=== PATIENT | female | born 1990 | race Caucasian/White ===

== ENCOUNTER 2016-08-03 10:28 | Emergency (ER) | payer OTHER ==
[2016-08-03 10:52] VITALS: RESP 18
[2016-08-03] MEDS ORDERED: diphenhydrAMINE ELIXIR 25 MG/10 ML CUP PO STA (11:09)
[2016-08-03] MEDS ORDERED: IPRATROPIUM-ALBUTEROL 3 ML NEB INHALATION STA (11:09)
[2016-08-03] MEDS ORDERED: IBUPROFEN 400 MG TAB PO STA (11:09)
--- NOTE | 2016-08-03 11:12 | ED ---
General Adult HPI - General Chief complaint: Allergic Reaction Stated complaint: lip swelling Time Seen by Provider: 08/03/16 10:54 Source: patient, RN notes reviewed Mode of arrival: ambulatory Limitations: no limitations - History of Present Illness Initial comments: 25-year-old female presents to the emergency room chief complaint of cough cold runny nose like symptoms. Patient states she's had these symptoms for the past few days. Patient states that yesterday she started noticing swelling to upper lip and a cold sore to the left. Patient states it continues to swell so she was concerned. Patient states that she also took, benefited first time yesterday and that seemed to help as well as Wells associate that with an ALLERGY or weakness from her cold. Patient states that she has had some gland irritation as well as some shortness of breath associated with her cold like symptoms. Patient is to help history and changes in medications. Patient denies any recent fever, chills, chest pain, back pain, abdominal pain, nausea vomiting, numbness or tingling, dysuria or hematuria, constipation or diarrhea, headaches or visual changes, or any other current symptoms. - Related Data Home Medications Medication Instructions Recorded Confirmed Ibuprofen [Motrin] 400 mg PO Q6HR PRN 10/12/15 10/12/15 Previous Rx's Medication Instructions Recorded Sulfamethox-Tmp 800-160Mg [Bactrim 1 tab PO Q12HR 7 Days 10/12/15 DS 800-160 mg] Docosanol 10% Cream [Abreva] 1 applic TOPICAL 5XD 5 Days 08/03/16 predniSONE 50 mg PO DAILY #5 tab 08/03/16 Allergies Allergy/AdvReac Type Severity Reaction Status Date / Time Iodinated Contrast Media - Allergy Rash/Hives Verified 08/03/16 10:52 Oral and [Iodinated Contrast Media - IV Dye] Review of Systems ROS Statement: Those systems with pertinent positive or pertinent negative responses have been documented in the HPI. ROS Other: All systems not noted in ROS Statement are negative. Past Medical History Past Medical History: Pneumonia, Pulmonary Embolus (PE) Additional Past Medical History / Comment(s): COLLAPSED LUNG meningitis History of Any Multi-Drug Resistant Organisms: None Reported Additional Past Surgical History / Comment(s): CHEST TUBE Past Psychological History: No Psychological Hx Reported Smoking Status: Current every day smoker Past Alcohol Use History: Occasional Past Drug Use History: Marijuana General Exam - General Exam Comments Initial Comments: General exam: Alert, active, comfortable in no apparent distress Head: Normocephalic Eyes: Normal reaction of pupils, equal size, normal range of extraocular motion Ears: normal external ear canals, pink tympanic membranes with normal cone of light Nose: clear with pink turbinates 1 patient does appear swollen upper lip with what appears to be an ulceration to the upper lip Throat: no erythema or exudates with normal sized tonsils Neck: no masses, no nuchal rigidity Chest: no chest wall deformity Lungs: equal air entry with no crackles or wheeze CVS: S1 and S2 normal with no audible mumurs, regular rhythm Abdomen: no hepatosplenomegaly, normal bowel sounds, no guarding or rigidity Spine: no scoliosis or deformity Skin: no rashes Neurological: No focal deficits, tone is normal in all 4 extremities Limitations: no limitations Course Vital Signs 08/03/16 08/03/16 08/03/16 10:47 11:21 11:29 Temperature 98.3 F Pulse Rate 95 84 84 Respiratory 18 Rate Blood Pressure 146/77 O2 Sat by Pulse 99 Oximetry Medical Decision Making - Medical Decision Making 25-year-old female presents for cold and upper lip sore. This time patient does appear to have acute bronchitis along with a cold sore outbreak. We'll start her on steroids for home as well as an inhaler. We discussed before did not smoking. We discussed return parameters and follow-up and all patient's questions. She states she understood and she is agreeable to plan. She'll be discharged home. - Lab Data Lab Results 08/03/16 Range/Units 11:20 Group A Strep Rapid Negative (Negative) - Radiology Data Radiology results: report reviewed, image reviewed Disposition Clinical Impression: Acute bronchitis, Cold sore Disposition: HOME SELF-CARE Condition: Stable Instructions: Acute Bronchitis (ED) Additional Instructions: Please use medication as discussed. Please follow up with family doctor if symptoms have not improved over the next two days. Please return to the emergency room if your symptoms increase or worsen or for any other concerns. Prescriptions: Docosanol 10% Cream [Abreva] 1 applic TOPICAL 5XD 5 Days predniSONE 50 mg PO DAILY #5 tab Referrals: Yordan Cazares MD [Primary Care Provider] - 1-2 days Time of Disposition: 12:07
--- NOTE | 2016-08-03 11:57 | XR ---
EXAMINATION TYPE: XR chest 2V DATE OF EXAM: 08/03/2016 11:36 AM COMPARISON: 11/17/2015 HISTORY: 25-year-old female with cough TECHNIQUE: PA and lateral views FINDINGS: The cardiomediastinal silhouette, aorta, and pulmonary vasculature are within normal limits. However, there is diffuse peribronchial cuffing and interstitial opacity. Findings increased from prior. No c onsolidation or pleural effusion. IMPRESSION: Correlate for bronchitis, uncontrolled asthma, or atypical pneumonias.
[2016-08-03 12:22] VITALS: BP 119/72; PULSE 76; TEMP 98.9
== END 2016-08-03 12:22 | disposition home or self-care (01) ==
LOC: EC 10:28
DX: J20.9 Acute bronchitis, unspecified (principal); F17.200 Nicotine dependence, unspecified, uncomplicated; Z91.041 Radiographic dye allergy status; Z87.01 Personal history of pneumonia (recurrent)
CPT/HCPCS: 71020; 87081; 87430; 94640; 99284

== ENCOUNTER 2016-10-10 12:33 | Emergency (ER) | payer OTHER ==
[2016-10-10 12:50] VITALS: BP 134/92; PULSE 92; RESP 18; TEMP 97.9
--- NOTE | 2016-10-10 13:05 | ED ---
General Adult HPI - General Chief complaint: Extremity Injury, Lower Stated complaint: Hip/Leg Pain Time Seen by Provider: 10/10/16 12:51 Source: patient, RN notes reviewed Mode of arrival: ambulatory Limitations: no limitations - History of Present Illness Initial comments: Patient 25-year-old female who presents emergency room today with chief complaint of pain to the left groin. Does admit that she was at work yesterday when she picked up a crate approximately 10 pounds and turned and twisted. Patient does admit that she felt some pain initially at that time. States it seems to get worse. She states that she tried some Tylenol yesterday with relief. States it is worse with certain movements when she lifts her leg up when she was trying to get into bed. Patient denies any other complaints or injuries. Patient denies any recent fever, chills, shortness of breath, chest pain, back pain, abdominal pain, nausea or vomiting, numbness or tingling, dysuria or hematuria, constipation or diarrhea, headaches or visual changes, or any other complaints. - Related Data Home Medications Medication Instructions Recorded Confirmed Ibuprofen [Motrin] 400 mg PO Q6HR PRN 10/12/15 10/12/15 Previous Rx's Medication Instructions Recorded Sulfamethox-Tmp 800-160Mg [Bactrim 1 tab PO Q12HR 7 Days 10/12/15 DS 800-160 mg] Docosanol 10% Cream [Abreva] 1 applic TOPICAL 5XD 5 Days 08/03/16 predniSONE 50 mg PO DAILY #5 tab 08/03/16 Ibuprofen [Motrin] 600 mg PO Q6HR PRN #40 day 10/10/16 Allergies Allergy/AdvReac Type Severity Reaction Status Date / Time Iodinated Contrast- Oral and Allergy Rash/Hives Verified 10/10/16 12:49 IV Dye [Iodinated Contrast Media - IV Dye] Review of Systems ROS Statement: Those systems with pertinent positive or pertinent negative responses have been documented in the HPI. ROS Other: All systems not noted in ROS Statement are negative. Past Medical History Past Medical History: Pneumonia, Pulmonary Embolus (PE) Additional Past Medical History / Comment(s): COLLAPSED LUNG meningitis History of Any Multi-Drug Resistant Organisms: None Reported Additional Past Surgical History / Comment(s): CHEST TUBE Past Psychological History: No Psychological Hx Reported Smoking Status: Current every day smoker Past Alcohol Use History: Occasional Past Drug Use History: Marijuana General Exam - General Exam Comments Initial Comments: General: The patient is awake and alert, in no distress, and does not appear acutely ill. Eye: Pupils are equal, round and reactive to light, extra-ocular movements are intact. No nystagmus. There is normal conjunctiva bilaterally. No signs of icterus. Ears, nose, mouth and throat: There are moist mucous membranes and no oral lesions. Neck: The neck is supple, there is no tenderness or JVD. Cardiovascular: There is a regular rate and rhythm. No murmur, rub or gallop is appreciated. Respiratory: Lungs are clear to auscultation, respirations are non-labored, breath sounds are equal. No wheezes, stridor, rales, or rhonchi. Gastrointestinal: Soft, non-distended, non-tender abdomen without masses or organomegaly noted. There is no rebound or guarding present. No CVA tenderness. Bowel sounds are unremarkable. Musculoskeletal: Normal ROM, no tenderness. Strength 5/5. Sensation intact. Pulses equal bilaterally 2+. Pain reproduced with flexion at the left hip. Neurological: A&O x 3. CN II-XII intact, There are no obvious motor or sensory deficits. Coordination appears grossly intact. Speech is normal. Skin: Skin is warm and dry and no rashes or lesions are noted. Psychiatric: Cooperative, appropriate mood & affect, normal judgment. Limitations: no limitations Course Vital Signs 10/10/16 12:46 Temperature 97.9 F Pulse Rate 92 Respiratory 18 Rate Blood Pressure 134/92 O2 Sat by Pulse 100 Oximetry Medical Decision Making - Medical Decision Making Patient seen here in the emergency room shows no signs of distress. Does not that the movement does cause pain. Patient has no sign of hernia. Was discussed with follow-up. Advised to use anti-inflammatories for pain Disposition Clinical Impression: Muscle strain Disposition: HOME SELF-CARE Condition: Good Instructions: Muscle Strain (ED) Additional Instructions: Please use ibuprofen for pain as prescribed. Please follow-up family doctor or return here to the emergency room symptoms increase or worsen or for any other concerns as discussed. Prescriptions: Ibuprofen [Motrin] 600 mg PO Q6HR PRN #40 day PRN Reason: Pain Referrals: Yordan Cazares MD [Primary Care Provider] - 1-2 days Time of Disposition: 13:04
--- NOTE | 2016-10-15 01:37 | CDI ---
Dear Jagdeep Ryder MD: Please do addendum to clinical impression that describes "Muscle strain", please include the location of the muscle strain. Thank you, Lana Echavarria, Safety Sitter. If you have any questions, please contact Home Improvement Contractor at [phone]. MIGUEL
== END 2016-10-10 13:33 | disposition home or self-care (01) ==
LOC: EC 12:33
DX: S39.011A Strain of muscle, fascia and tendon of abdomen, initial encounter (principal); F17.200 Nicotine dependence, unspecified, uncomplicated; Z91.041 Radiographic dye allergy status; X50.1XXA Overexertion from prolonged static or awkward postures, initial encounter; Y92.69 Other specified industrial and construction area as the place of occurrence of the external cause; Y93.89 Activity, other specified
CPT/HCPCS: 99282

== ENCOUNTER 2017-09-09 23:28 | Emergency (ER) | payer OTHER ==
[2017-09-09 23:35] VITALS: BP 140/84; PULSE 113; RESP 16; TEMP 98.4
[2017-09-10] MEDS ORDERED: CEPHALEXIN 500MG STARTER PACK 4 CAP BTL PO STA (00:07)
[2017-09-10] MEDS ORDERED: diphenhydrAMINE 50 MG/ML 1 ML VIAL IM STA (00:07)
[2017-09-10] MEDS ORDERED: CEPHALEXIN 500 MG CAP PO STA (00:07)
[2017-09-10] MEDS ORDERED: predniSONE 50 MG TAB PO STA (00:07)
--- NOTE | 2017-09-10 00:13 | ED ---
General Adult HPI - General Chief complaint: Skin/Abscess/Foreign Body Stated complaint: poss allergic reaction Time Seen by Provider: 09/10/17 00:00 Source: patient, RN notes reviewed Mode of arrival: ambulatory Limitations: no limitations - History of Present Illness Initial comments: This is a 26-year-old female who presents to the emergency room complaining of a bug bite on her lower right leg upper right leg and in her lower pelvis. Patient states she noticed them first last night and now the area is more red and itchy. Patient denies any difficulty breathing or shortness of breath. Patient doesn't know what they're and didn't remember feeling any bites. Patient denies any fever or chills. - Related Data Home Medications Medication Instructions Recorded Confirmed Ibuprofen [Motrin] 400 mg PO Q6HR PRN 10/12/15 09/09/17 Previous Rx's Medication Instructions Recorded Cephalexin [Keflex] 500 mg PO Q6HR #28 cap 09/10/17 predniSONE 40 mg PO DAILY #8 tab 09/10/17 Allergies Allergy/AdvReac Type Severity Reaction Status Date / Time Iodinated Contrast- Oral and Allergy Rash/Hives Verified 09/09/17 23:35 IV Dye [Iodinated Contrast Media - IV Dye] Review of Systems ROS Statement: Those systems with pertinent positive or pertinent negative responses have been documented in the HPI. ROS Other: All systems not noted in ROS Statement are negative. Past Medical History Past Medical History: Pneumonia, Pulmonary Embolus (PE) Additional Past Medical History / Comment(s): COLLAPSED LUNG meningitis History of Any Multi-Drug Resistant Organisms: None Reported Additional Past Surgical History / Comment(s): CHEST TUBE Past Psychological History: No Psychological Hx Reported Smoking Status: Current every day smoker Past Alcohol Use History: Occasional Past Drug Use History: Marijuana General Exam - General Exam Comments Initial Comments: GENERAL: Patient is well-developed and well-nourished. Patient is nontoxic and well- hydrated and is in mild distress. ENT: Neck is soft and supple. No significant lymphadenopathy is noted. Oropharynx is clear. Moist mucous membranes. Neck has full range of motion without eliciting any pain. EYES: The sclera were anicteric and conjunctiva were pink and moist. Extraocular movements were intact and pupils were equal round and reactive to light. Eyelids were unremarkable. PULMONARY: Unlabored respirations. Good breath sounds bilaterally. No audible rales rhonchi or wheezing was noted. CARDIOVASCULAR: There is a regular rate and rhythm without any murmurs gallops or rubs. ABDOMEN: Soft and nontender with normal bowel sounds. No palpable organomegaly was noted. There is no palpable pulsatile mass. SKIN: Large erythematous area in the lower leg and a smaller erythematous circular area in the upper right thigh. Patient states both areas are itchy. Area is very consistent with a local ALLERGIC reaction NEUROLOGIC: Patient is alert and oriented x3. Cranial nerves II through XII are grossly intact. Motor and sensory are also intact. Normal speech, volume and content. Symmetrical smile. MUSCULOSKELETAL: Normal extremities with adequate strength and full range of motion. LYMPHATICS: No significant lymphadenopathy is noted PSYCHIATRIC: Normal psychiatric evaluation. Limitations: no limitations Course Vital Signs 09/09/17 23:30 Temperature 98.4 F Pulse Rate 113 H Respiratory 16 Rate Blood Pressure 140/84 O2 Sat by Pulse 100 Oximetry Disposition Clinical Impression: Insect bites, Allergic reaction Disposition: HOME SELF-CARE Condition: Good Instructions: Urticaria (ED) Prescriptions: Cephalexin [Keflex] 500 mg PO Q6HR #28 cap predniSONE 40 mg PO DAILY #8 tab Is patient prescribed a controlled substance at d/c from ED?: No Referrals: Yordan Cazares MD [Primary Care Provider] - 1-2 days Time of Disposition: 00:13
== END 2017-09-10 00:21 | disposition home or self-care (01) ==
LOC: EC 23:28
DX: S80.861A Insect bite (nonvenomous), right lower leg, initial encounter (principal); S70.361A Insect bite (nonvenomous), right thigh, initial encounter; S30.860A Insect bite (nonvenomous) of lower back and pelvis, initial encounter; T78.49XA Other allergy, initial encounter; F17.200 Nicotine dependence, unspecified, uncomplicated; Z91.041 Radiographic dye allergy status; W57.XXXA Bitten or stung by nonvenomous insect and other nonvenomous arthropods, initial encounter
CPT/HCPCS: 99282; 96372; J1200; J7512

== ENCOUNTER 2018-01-06 17:06 | Emergency (ER) | payer OTHER ==
--- NOTE | 2018-01-06 17:58 | ED ---
General Adult HPI - General Chief complaint: Back Pain/Injury Stated complaint: back pain Time Seen by Provider: 01/06/18 17:32 Source: patient, RN notes reviewed, old records reviewed Mode of arrival: ambulatory Limitations: no limitations - History of Present Illness Initial comments: 27-year-old female patient presents with back pain which began approximately 11 AM today. 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 The pain is located in her posterior thoracic paraspinal region bilaterally. The pain is described as constant and achy. The pain has not been relieved by either Motrin or Tylenol. The pain is not pleuritic the patient additionally complains of a cough that has lasted approximately 2 weeks. The cough is described as nonproductive. Patient also complains of intermittent nausea and vomiting. Patient admits to emesis 3 times last week, Most recent was 3 days ago. Patient denies night sweats, malaise, abdominal pain, dysuria/discharge, myalgias, chest pain, heart palpitations, tachypnea, shortness of breath. Patient denies any recent fever, chills, shortness of breath, chest pain, abdominal pain, numbness or tingling, dysuria or hematuria, constipation or diarrhea, headaches or visual changes, or any other complaints. - Related Data Home Medications Medication Instructions Recorded Confirmed Ibuprofen [Motrin] 800 mg PO Q6HR PRN 10/12/15 01/06/18 Phenylephrine/Dm/Acetaminop/GG 1 tab PO BID 01/06/18 01/06/18 [Tylenol Cold-Flu Severe Caplet] Previous Rx's Medication Instructions Recorded Cyclobenzaprine [Flexeril] 10 mg PO TID #20 tab 01/06/18 Allergies Allergy/AdvReac Type Severity Reaction Status Date / Time Iodinated Contrast- Oral and Allergy Rash/Hives Verified 01/06/18 17:35 IV Dye [Iodinated Contrast Media - IV Dye] pomegranate Allergy Itching Verified 01/06/18 17:35 Review of Systems ROS Statement: Those systems with pertinent positive or pertinent negative responses have been documented in the HPI. ROS Other: All systems not noted in ROS Statement are negative. Past Medical History Past Medical History: Pneumonia, Pulmonary Embolus (PE) Additional Past Medical History / Comment(s): COLLAPSED LUNG meningitis History of Any Multi-Drug Resistant Organisms: None Reported Past Surgical History: No Surgical Hx Reported Additional Past Surgical History / Comment(s): CHEST TUBE Past Psychological History: No Psychological Hx Reported Smoking Status: Current every day smoker Past Alcohol Use History: Occasional Past Drug Use History: Marijuana General Exam - General Exam Comments Initial Comments: General: Patient appears to be in no distress. Vital stable. HEENT: Pupils equal round reactive to light. Neck supple and nontender. No lymphadenopathy. Trachea midline. Cardiac: Regular rate rhythm no murmur or gallop. Pulmonary: Mild wheezing and posterior candelaria bilaterally, lungs clear post tussively. Abdomen: Abdomen nontender to palpation in all 4 quadrants. Soft and nondistended. Bowel sounds active in left lower quadrant. MSK: Lower extremities are nonedematous bilaterally. No pain with palpation and posterior calf bilaterally. Sendy sign negative. Limitations: no limitations Course Vital Signs 01/06/18 17:20 Temperature 98.1 F Pulse Rate 78 Respiratory 18 Rate Blood Pressure 116/71 O2 Sat by Pulse 100 Oximetry Medical Decision Making - Medical Decision Making Workup of patient did not demonstrate any acute pathology. Workup included negative chest x-ray. CBC and CMP were unremarkable. D-dimer was negative. Patient is being treated for musculoskeletal thoracic back strain. Patient will be discharged with Flexeril to be taken per administration instructions. Patient advised to return if symptoms worsen or do not shaquille within 1 week. Disposition Clinical Impression: Mechanical back pain Disposition: HOME SELF-CARE Condition: Good Instructions: Thoracic Back Strain (ED) Additional Instructions: Take medications as previously discussed. Follow up with primary care provider in 1-2 days. If symptoms do not improve within the next 5-7 days return to ED. Is patient prescribed a controlled substance at d/c from ED?: No Referrals: Yordan Cazares MD [Primary Care Provider] - 1-2 days Time of Disposition: 19:38
[2018-01-06 18:19] LABS: Basophils # (A) 0.1 k/uL (0-0.2); Basophils % (A) 1 %; Eosinophils # (A) 0.2 k/uL (0-0.7); Eosinophils % (A) 3 %; HGB 14.5 gm/dL (11.4-16.0); Lymphocytes % (A) 35 %; MCHC 33.6 g/dL (31.0-37.0); MCV 86.2 fL (80.0-100.0); Mean Platelet Volume 6.7; Monocytes # (A) 0.3 k/uL (0-1.0); Monocytes % (A) 4 %; Neutrophils # (A) 4.7 k/uL (1.3-7.7); Neutrophils % (A) 56 %; Platelet Count 254 k/uL (150-450); RBC 4.99 m/uL (3.80-5.40); RDW 12.7 % (11.5-15.5); WBC 8.5 k/uL (3.8-10.6)
[2018-01-06 18:33] LABS: Anion Gap 9 mmol/L; Blood Urea Nitrogen 14 mg/dL (7-17); Calcium 9.6 mg/dL (8.4-10.2); Carbon Dioxide 23 mmol/L (22-30); Chloride 110 mmol/L (98-107); Glucose 79 mg/dL (74-99); Sodium 142 mmol/L (137-145)
--- NOTE | 2018-01-06 18:35 | XR ---
EXAMINATION: XR chest 2V DATE AND TIME: 01/06/2018 6:24 PM CLINICAL INDICATION: Pain TECHNIQUE: PA and lateral COMPARISON: 08/03/2016 FINDINGS: The overlying soft tissues are prominent. Given this potentially confounding factor, the lungs appear to be clear. The pleural spaces are negative. The cardiac silhouette is not enlarged. The remainder of the mediastinal silhouette is unremarkable. The skeletal structures and soft tissues are negative for acute findings. IMPRESSION: NO ACUTE PROCESS.
[2018-01-06 18:57] VITALS: BP 130/78; PULSE 72; RESP 18; TEMP 98.2
== END 2018-01-06 19:50 | disposition home or self-care (01) ==
LOC: EC 17:06
DX: M54.6 Pain in thoracic spine (principal); R11.2 Nausea with vomiting, unspecified; R05 Cough; F17.200 Nicotine dependence, unspecified, uncomplicated; Z86.711 Personal history of pulmonary embolism; Z79.899 Other long term (current) drug therapy; Z91.018 Allergy to other foods; Z91.041 Radiographic dye allergy status
CPT/HCPCS: 36415; 71046; 80048; 85025; 85379; 99284

== ENCOUNTER 2018-09-27 16:07 | Emergency (ER) | payer OTHER ==
[2018-09-27 16:14] VITALS: RESP 18; TEMP 97.6
--- NOTE | 2018-09-27 16:23 | ED ---
Chest Pain HPI - General Source: patient, RN notes reviewed Mode of arrival: ambulatory Limitations: no limitations <Jason Arizmendi - Last Filed: 09/27/18 16:30> <Bryant Mitchell - Last Filed: 09/27/18 18:14> - General Chief Complaint: Chest Pain Stated Complaint: Chest pain Time Seen by Provider: 09/27/18 16:15 - History of Present Illness Initial Comments: 27-year-old female presents emergency Department with chief complaint of chest pain. Patient states it started today after work. Patient states it does hurt when she takes a deep inspiration. Patient states it feels very similar to when she had "fluid, lungs and pneumonia". Patient states that approximately 5-6 years ago she had pneumonia which was ongoing and was hospitalized in which she and of having a chest tube and was found to have a PE and her right lung. Patient states that she never followed up for testing for clotting disorders and she also states her mother has had multiple blood clots. Patient denies fever, chills. No cough or chest congestion. Patient states she can reproduce pain at this time. Patient denies any nausea vomiting, diaphoresis, back pain (Jason Arizmendi) - Related Data Home Medications Medication Instructions Recorded Confirmed Ibuprofen [Motrin] 800 mg PO Q6HR PRN 10/12/15 01/06/18 Phenylephrine/Dm/Acetaminop/GG 1 tab PO BID 01/06/18 01/06/18 [Tylenol Cold-Flu Severe Caplet] Previous Rx's Medication Instructions Recorded Cyclobenzaprine [Flexeril] 10 mg PO TID #20 tab 01/06/18 predniSONE 50 mg PO DAILY #5 tablet 09/27/18 Allergies Allergy/AdvReac Type Severity Reaction Status Date / Time Iodinated Contrast- Oral and Allergy Rash/Hives Verified 01/06/18 17:35 IV Dye [Iodinated Contrast Media - IV Dye] pomegranate Allergy Itching Verified 01/06/18 17:35 Review of Systems ROS Other: All systems not noted in ROS Statement are negative. <Jason Arizmendi - Last Filed: 09/27/18 16:30> ROS Other: All systems not noted in ROS Statement are negative. <Bryant Mitchell - Last Filed: 09/27/18 18:14> ROS Statement: Those systems with pertinent positive or pertinent negative responses have been documented in the HPI. EKG Findings - EKG Comments: EKG Findings:: EKG performed at 16:30 normal sinus rhythm rate of 75 [place] 1:30 QRS 88 QT/QTC 404/451 <Jason Arizmendi - Last Filed: 09/27/18 16:30> Past Medical History Past Medical History: Pneumonia, Pulmonary Embolus (PE) Additional Past Medical History / Comment(s): COLLAPSED LUNG meningitis History of Any Multi-Drug Resistant Organisms: None Reported Past Surgical History: No Surgical Hx Reported Additional Past Surgical History / Comment(s): CHEST TUBE Past Psychological History: No Psychological Hx Reported Smoking Status: Current every day smoker Past Alcohol Use History: Occasional Past Drug Use History: Marijuana <Jason Arizmendi - Last Filed: 09/27/18 16:30> General Exam Limitations: no limitations General appearance: alert, in no apparent distress Head exam: Present: atraumatic, normocephalic, normal inspection Eye exam: Present: normal appearance, PERRL, EOMI. Absent: scleral icterus, conjunctival injection, periorbital swelling ENT exam: Present: normal exam, normal oropharynx, mucous membranes moist Neck exam: Present: normal inspection, full ROM. Absent: tenderness, meningismus, lymphadenopathy Respiratory exam: Present: normal lung sounds bilaterally, chest wall tenderness (Mild tenderness to the anterior chest wall region on the left). Absent: respiratory distress, wheezes, rales, rhonchi, stridor Cardiovascular Exam: Present: regular rate, normal rhythm, normal heart sounds. Absent: systolic murmur, diastolic murmur, rubs, gallop, clicks GI/Abdominal exam: Present: soft, normal bowel sounds. Absent: distended, tenderness, guarding, rebound, rigid Back exam: Absent: CVA tenderness (R), CVA tenderness (L) Neurological exam: Present: alert, oriented X3, CN II-XII intact Skin exam: Present: warm, dry, intact, normal color. Absent: rash <Jason Arizmendi - Last Filed: 09/27/18 16:30> Course Vital Signs 09/27/18 09/27/18 09/27/18 16:10 17:59 18:00 Temperature 97.6 F Pulse Rate 73 80 80 Respiratory 18 18 Rate Blood Pressure 131/84 143/82 O2 Sat by Pulse 98 98 Oximetry 09/27/18 18:10 Temperature Pulse Rate 80 Respiratory Rate Blood Pressure O2 Sat by Pulse Oximetry Chest Pain MDM <Bryant Mitchell - Last Filed: 09/27/18 18:14> - [facility] I took over this patient's care at 1700 from Jason SAAVEDRA. I did personally evaluate patient. Patient states that she was hospitalized approximately 5-6 years ago with meningitis and developed pneumonia and ended up having a chest tube. She was then found to have a PE afterwards. Patient states she has had this pleuritic chest pain intermittently for the past several months. she has followed up with her lung doctor multiple times for this complaint and they "always tell me it is asthma". States that it started again today after work. Patient states she has had left-sided chest pain since today but this has been ongoing intermittently for several months. States it is pleuritic in nature. Denies any shortness of breath. On exam it is reproducible to palpation of the chest wall. Patient is found to have wheezing in lungs bilaterally and is an asthmatic. She does deny cough however. CBC and CMP are unremarkable. Dimer is within normal limits. Vitals are stable, patient is not tachycardic. Troponin negative. Chest x-ray does show persistent small left pleural effusion or pleural thickening. No change from prior or acute infiltrate. Patient was given a breathing treatment Toradol and steroids. Patient will be put on steroids given wheezing. This is likely a chest wall pain as it is reproducible on exam. 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 She will return here for any worsening symptoms. Case discussed with Dr. Grey. (Bryant Mitchell) Disposition <Jason Arizmendi - Last Filed: 09/27/18 16:30> Is patient prescribed a controlled substance at d/c from ED?: No Time of Disposition: 18:12 <Bryant Mitchell - Last Filed: 09/27/18 18:14> Clinical Impression: Chest wall pain, Wheezing Disposition: HOME SELF-CARE Condition: Good Instructions (If sedation given, give patient instructions): Costochondritis (ED), Chest Pain (ED), Asthma (ED) Additional Instructions: Please take steroids as directed. Please follow-up with your crew scheduler in one to 2 days. If you have any worsening symptoms such as worsening chest pain or shortness of breath be sure to return immediately to the nearest emergency department. Prescriptions: predniSONE 50 mg PO DAILY #5 tablet Referrals: Yordan Cazares MD [Primary Care Provider] - 1-2 days
[2018-09-27 17:07] LABS: African American GFR (CKD) >90 (>60 ml/min/1.73 sqM); Anion Gap 9 mmol/L; Blood Urea Nitrogen 9 mg/dL (7-17); Calcium 9.6 mg/dL (8.4-10.2); Carbon Dioxide 25 mmol/L (22-30); Chloride 109 mmol/L (98-107); Glucose 98 mg/dL (74-99); Potassium 3.8 mmol/L (3.5-5.1); Sodium 143 mmol/L (137-145)
[2018-09-27 17:09] LABS: Basophils # (A) 0.1 k/uL (0-0.2); Basophils % (A) 1 %; Eosinophils # (A) 0.2 k/uL (0-0.7); Eosinophils % (A) 2 %; HCT 42.1 % (34.0-46.0); HGB 14.3 gm/dL (11.4-16.0); Lymphocytes # (A) 3.3 k/uL (1.0-4.8); Lymphocytes % (A) 33 %; MCHC 33.9 g/dL (31.0-37.0); MCV 85.7 fL (80.0-100.0); Mean Platelet Volume 6.9; Monocytes # (A) 0.3 k/uL (0-1.0); Monocytes % (A) 3 %; Neutrophils # (A) 5.8 k/uL (1.3-7.7); Neutrophils % (A) 59 %; Platelet Count 246 k/uL (150-450); RBC 4.91 m/uL (3.80-5.40); RDW 12.4 % (11.5-15.5); WBC 9.9 k/uL (3.8-10.6)
--- NOTE | 2018-09-27 17:25 | XR ---
EXAMINATION TYPE: XR chest 2V DATE OF EXAM: 09/27/2018 COMPARISON: Chest x-ray January 06, 2018. HISTORY: Chest pressure and pain. TECHNIQUE: Frontal and lateral views of the chest are obtained. FINDINGS: There is chronic blunting lateral left costophrenic angle. Right lung remains clear. The c ardiac silhouette size remains within normal limits. The osseous structures are intact. IMPRESSION: Persistent small left pleural effusion or pleural thickening. No acute infiltrate. No si gnificant change from prior.
[2018-09-27] MEDS ORDERED: KETOROLAC 30 MG/ML 1 ML VIAL IVP STA (17:52)
[2018-09-27] MEDS ORDERED: methylPREDNISolone SOD SUCCI 125 MG/2 ML VIAL IV STA (17:52)
[2018-09-27] MEDS ORDERED: IPRATROPIUM-ALBUTEROL 3 ML NEB INHALATION STA (17:52)
[2018-09-27 18:00] VITALS: BP 143/82; PULSE 80
== END 2018-09-27 18:21 | disposition home or self-care (01) ==
LOC: EC 16:07
DX: R07.89 Other chest pain (principal); R06.2 Wheezing; F17.200 Nicotine dependence, unspecified, uncomplicated; Z79.891 Long term (current) use of opiate analgesic; Z79.899 Other long term (current) drug therapy; Z91.041 Radiographic dye allergy status; Z91.018 Allergy to other foods; Z87.01 Personal history of pneumonia (recurrent); Z86.711 Personal history of pulmonary embolism
CPT/HCPCS: 36415; 94640; 93005; 85379; 80048; 84484; 85025; 81025; 71046; 99285; 96374; 96375; J2930; J1885

== ENCOUNTER 2018-12-31 13:11 | Emergency (ER) | payer OTHER ==
[2018-12-31] MEDS ORDERED: KETOROLAC 30 MG/ML 1 ML VIAL IVP STA (14:02)
[2018-12-31] MEDS ORDERED: ALBUTEROL NEBULIZED 2.5 MG/3 ML INHALATION STA (14:02)
--- NOTE | 2018-12-31 14:52 | ED ---
General Adult HPI - General Chief complaint: Shortness of Breath Stated complaint: Lung pain Time Seen by Provider: 12/31/18 13:51 Source: patient, RN notes reviewed, old records reviewed Mode of arrival: ambulatory Limitations: no limitations - History of Present Illness Initial comments: 28-year-old female, presents today for complaints of left-sided lung pain. She reports having symptoms for the past week. Patient states she's had history of chronic lung problems that she did have pneumonia, and then pleural effusion and also had a history of pneumothorax on the left side. She did eventually require a chest tube that was 6 years ago. She is concerned that she had some similar symptoms going on today. Patient states that she's had no specific fevers or chills. A dry cough. - Related Data Home Medications Medication Instructions Recorded Confirmed Ibuprofen [Motrin] 800 mg PO Q6HR PRN 10/12/15 01/06/18 Phenylephrine/Dm/Acetaminop/GG 1 tab PO BID 01/06/18 01/06/18 [Tylenol Cold-Flu Severe Caplet] Previous Rx's Medication Instructions Recorded Cyclobenzaprine [Flexeril] 10 mg PO TID #20 tab 01/06/18 predniSONE 50 mg PO DAILY #5 tablet 09/27/18 Albuterol Inhaler [Ventolin Hfa 1 - 2 puff INHALATION RT-Q6H PRN 12/31/18 Inhaler] #1 inhaler predniSONE 50 mg PO DAILY #5 tablet 12/31/18 Allergies Allergy/AdvReac Type Severity Reaction Status Date / Time Iodinated Contrast Media Allergy Rash/Hives Verified 01/06/18 17:35 [Iodinated Contrast Media - IV Dye] pomegranate Allergy Itching Verified 01/06/18 17:35 Review of Systems ROS Statement: Those systems with pertinent positive or pertinent negative responses have been documented in the HPI. ROS Other: All systems not noted in ROS Statement are negative. Past Medical History Past Medical History: Pneumonia, Pulmonary Embolus (PE) Additional Past Medical History / Comment(s): COLLAPSED LUNG meningitis History of Any Multi-Drug Resistant Organisms: None Reported Past Surgical History: No Surgical Hx Reported Additional Past Surgical History / Comment(s): CHEST TUBE Past Psychological History: No Psychological Hx Reported Smoking Status: Current every day smoker Past Alcohol Use History: Occasional Past Drug Use History: Marijuana General Exam - General Exam Comments Initial Comments: Well-appearing 28-year-old female. No distress. Limitations: no limitations General appearance: alert, in no apparent distress Head exam: Present: atraumatic Eye exam: Present: normal appearance, PERRL, EOMI. Absent: scleral icterus, conjunctival injection, periorbital swelling ENT exam: Present: normal exam, mucous membranes moist Neck exam: Present: normal inspection Respiratory exam: Present: normal lung sounds bilaterally, other (Left-sided posterior chest wall tenderness. Evidence of scar from previous chest tube.). Absent: respiratory distress, wheezes, rales, rhonchi, stridor Cardiovascular Exam: Present: regular rate, normal rhythm, normal heart sounds. Absent: systolic murmur, diastolic murmur, rubs, gallop, clicks GI/Abdominal exam: Present: soft, normal bowel sounds. Absent: distended, tenderness, guarding, rebound, rigid Extremities exam: Present: normal inspection, full ROM, normal capillary refill. Absent: tenderness, pedal edema, joint swelling, calf tenderness Back exam: Present: normal inspection Neurological exam: Present: alert, oriented X3, CN II-XII intact Psychiatric exam: Present: normal affect, normal mood Skin exam: Present: warm, dry, intact, normal color. Absent: rash Course Vital Signs 12/31/18 12/31/18 12/31/18 13:26 14:22 14:31 Temperature 97.8 F Pulse Rate 92 75 91 Respiratory 18 16 16 Rate Blood Pressure 122/79 O2 Sat by Pulse 97 Oximetry 12/31/18 16:54 Temperature 98.0 F Pulse Rate 75 Respiratory 18 Rate Blood Pressure 134/77 O2 Sat by Pulse 98 Oximetry Medical Decision Making - Medical Decision Making This is a 28-year-old female presents today with left-sided chest pain and lung pain. Patient IS a deep breath. This time vital signs are stable. Patient's labwork was reviewed. D-dimer is negative troponins. EKG shows no acute changes. Normal chest x-rays noted. Patient has is some tenderness onto the left rib and lung lungs were clear. On evaluation she is continues to have some discomfort. I discussed that the labs otherwise being normal seems more likely costochondritis. Discussed following up. - Lab Data Result diagrams: 12/31/18 14:44 12/31/18 14:44 Lab Results 10/12/31/18 12/31/18 Range/Units 14:44 14:44 14:44 WBC 9.4 (3.8-10.6) k/uL RBC 4.87 (3.80-5.40) m/uL Hgb 14.7 (11.4-16.0) gm/dL Hct 42.2 (34.0-46.0) % MCV 86.6 (80.0-100.0) fL MCH 30.2 (25.0-35.0) pg MCHC 34.8 (31.0-37.0) g/dL RDW 12.5 (11.5-15.5) % Plt Count 201 (150-450) k/uL Neutrophils % 67 % Lymphocytes % 26 % Monocytes % 4 % Eosinophils % 1 % Basophils % 1 % Neutrophils # 6.3 (1.3-7.7) k/uL Lymphocytes # 2.4 (1.0-4.8) k/uL Monocytes # 0.3 (0-1.0) k/uL Eosinophils # 0.1 (0-0.7) k/uL Basophils # 0.1 (0-0.2) k/uL PT 10.0 (9.0-12.0) sec INR 0.9 (<1.2) APTT 23.8 (22.0-30.0) sec D-Dimer 0.24 (<0.60) mg/L FEU Sodium 142 (137-145) mmol/L Potassium 4.0 (3.5-5.1) mmol/L Chloride 109 H (98-107) mmol/L Carbon Dioxide 25 (22-30) mmol/L Anion Gap 8 mmol/L BUN 10 (7-17) mg/dL Creatinine 0.69 (0.52-1.04) mg/dL Est GFR (CKD-EPI)AfAm >90 (>60 ml/min/1.73 sqM) Est GFR (CKD-EPI)NonAf >90 (>60 ml/min/1.73 sqM) Glucose 90 (74-99) mg/dL Calcium 9.7 (8.4-10.2) mg/dL Magnesium 1.9 (1.6-2.3) mg/dL Total Bilirubin 0.4 (0.2-1.3) mg/dL AST 32 (14-36) U/L ALT 39 (9-52) U/L Alkaline Phosphatase 72 (38-126) U/L Troponin I (0.000-0.034) ng/mL Total Protein 7.2 (6.3-8.2) g/dL Albumin 4.3 (3.5-5.0) g/dL 12/31/18 Range/Units 14:44 WBC (3.8-10.6) k/uL RBC (3.80-5.40) m/uL Hgb (11.4-16.0) gm/dL Hct (34.0-46.0) % MCV (80.0-100.0) fL MCH (25.0-35.0) pg MCHC (31.0-37.0) g/dL RDW (11.5-15.5) % Plt Count (150-450) k/uL Neutrophils % % Lymphocytes % % Monocytes % % Eosinophils % % Basophils % % Neutrophils # (1.3-7.7) k/uL Lymphocytes # (1.0-4.8) k/uL Monocytes # (0-1.0) k/uL Eosinophils # (0-0.7) k/uL Basophils # (0-0.2) k/uL PT (9.0-12.0) sec INR (<1.2) APTT (22.0-30.0) sec D-Dimer (<0.60) mg/L FEU Sodium (137-145) mmol/L Potassium (3.5-5.1) mmol/L Chloride (98-107) mmol/L Carbon Dioxide (22-30) mmol/L Anion Gap mmol/L BUN (7-17) mg/dL Creatinine (0.52-1.04) mg/dL Est GFR (CKD-EPI)AfAm (>60 ml/min/1.73 sqM) Est GFR (CKD-EPI)NonAf (>60 ml/min/1.73 sqM) Glucose (74-99) mg/dL Calcium (8.4-10.2) mg/dL Magnesium (1.6-2.3) mg/dL Total Bilirubin (0.2-1.3) mg/dL AST (14-36) U/L ALT (9-52) U/L Alkaline Phosphatase (38-126) U/L Troponin I <0.012 (0.000-0.034) ng/mL Total Protein (6.3-8.2) g/dL Albumin (3.5-5.0) g/dL 12/31/18 15:54 EKG shows normal sinus rhythm, minimal voltage criteria for LVH. Prolonged QT. Abnormal EKG. Ventricular rate 93 bpm. Was 136 ms. QS ration 80 ms. QT QTc is 390/484 ms. - Radiology Data Radiology results: report reviewed Normal chest x-ray. Disposition Clinical Impression: Pleurisy Disposition: HOME SELF-CARE Condition: Good Instructions (If sedation given, give patient instructions): Pleurisy (ED) Additional Instructions: Please use medication as discussed. Please follow up with family doctor if s ymptoms have not improved over the next two days. Please return to the emergency room if your symptoms increase or worsen or for any other concerns. Prescriptions: predniSONE 50 mg PO DAILY #5 tablet Albuterol Inhaler [Ventolin Hfa Inhaler] 1 - 2 puff INHALATION RT-Q6H PRN #1 inhaler PRN Reason: Shortness Of Breath Is patient prescribed a controlled substance at d/c from ED?: No Referrals: Yordan Cazares MD [Primary Care Provider] - 1-2 days Time of Disposition: 16:09
[2018-12-31 14:57] LABS: Basophils # (A) 0.1 k/uL (0-0.2); Basophils % (A) 1 %; Eosinophils # (A) 0.1 k/uL (0-0.7); Eosinophils % (A) 1 %; HCT 42.2 % (34.0-46.0); HGB 14.7 gm/dL (11.4-16.0); Lymphocytes # (A) 2.4 k/uL (1.0-4.8); Lymphocytes % (A) 26 %; MCH 30.2 pg (25.0-35.0); MCHC 34.8 g/dL (31.0-37.0); MCV 86.6 fL (80.0-100.0); Monocytes # (A) 0.3 k/uL (0-1.0); Monocytes % (A) 4 %; Neutrophils # (A) 6.3 k/uL (1.3-7.7); Neutrophils % (A) 67 %; Platelet Count 201 k/uL (150-450); RBC 4.87 m/uL (3.80-5.40); RDW 12.5 % (11.5-15.5); WBC 9.4 k/uL (3.8-10.6)
[2018-12-31 15:01] LABS: ALT 39 U/L (9-52); AST 32 U/L (14-36); African American GFR (CKD) >90 (>60 ml/min/1.73 sqM); Albumin 4.3 g/dL (3.5-5.0); Alkaline Phosphatase 72 U/L (38-126); Anion Gap 8 mmol/L; Blood Urea Nitrogen 10 mg/dL (7-17); Calcium 9.7 mg/dL (8.4-10.2); Carbon Dioxide 25 mmol/L (22-30); Chloride 109 mmol/L (98-107); Glucose 90 mg/dL (74-99); Magnesium 1.9 mg/dL (1.6-2.3); Sodium 142 mmol/L (137-145); Total Bilirubin 0.4 mg/dL (0.2-1.3); Total Protein 7.2 g/dL (6.3-8.2)
[2018-12-31 15:05] LABS: D-Dimer 0.24 mg/L FEU (<0.60); INR 0.9 (<1.2); Partial Thromboplastin Time 23.8 sec (22.0-30.0)
--- NOTE | 2018-12-31 15:12 | XR ---
EXAMINATION TYPE: XR chest 2V DATE OF EXAM: 12/31/2018 COMPARISON: 09/27/2018 INDICATION: Difficulty breathing, dyspnea TECHNIQUE: Frontal and lateral views of the chest are obtained. FINDINGS: The heart size is normal. The pulmonary vasculature is normal. The lungs are clear. There appears to be chronic blunting of the left costophrenic angle. IMPRESSION: 1. No acute pulmonary process.
[2018-12-31] MEDS ORDERED: methylPREDNISolone SOD SUCCI 125 MG/2 ML VIAL IV STA (16:08)
[2018-12-31 16:55] VITALS: BP 134/77; PULSE 75; RESP 18; TEMP 98
== END 2018-12-31 17:03 | disposition home or self-care (01) ==
LOC: EC 13:11
DX: R09.1 Pleurisy (principal); R06.02 Shortness of breath; R05 Cough; F17.200 Nicotine dependence, unspecified, uncomplicated; Z87.01 Personal history of pneumonia (recurrent); Z87.09 Personal history of other diseases of the respiratory system; Z86.711 Personal history of pulmonary embolism; Z86.69 Personal history of other diseases of the nervous system and sense organs; Z98.890 Other specified postprocedural states; Z79.899 Other long term (current) drug therapy; Z91.018 Allergy to other foods; Z91.041 Radiographic dye allergy status
CPT/HCPCS: 36415; 94640; 93005; 85379; 80053; 83735; 84484; 85025; 85610; 85730; 71046; 99285; 96374; 96375; J2930; J1885

== ENCOUNTER → 2020-10-23 | Outpatient (CLI) | payer OTHER ==
--- NOTE | 2020-10-23 13:38 | XR ---
EXAMINATION TYPE: XR sacroiliac joint comp BILAT DATE OF EXAM: 10/23/2020 COMPARISON: None HISTORY: Uveitis TECHNIQUE: 3 views sacroiliac joints FINDINGS: Sacroiliac joints are examined in 3 projections The sacroiliac joints are patent. No effusion is evident. No suspicious sclerotic areas are evident. IMPRESSION: 1. Normal sacral iliac joint spaces
--- NOTE | 2020-10-23 13:39 | XR ---
EXAMINATION TYPE: XR chest 2V DATE OF EXAM: 10/23/2020 COMPARISON: 12/31/2018 INDICATION: Uveitis TECHNIQUE: Frontal and lateral views of the chest are obtained. FINDINGS: The heart size is normal. The pulmonary vasculature is normal. The lungs are clear. There is some elevation lateral left diaphragm. This is chronic. Bilateral nippl e piercings are present IMPRESSION: 1. No acute pulmonary process.
[2020-10-23 14:05] LABS: Basophils # (A) 0.1 k/uL (0-0.2); Basophils % (A) 1 %; Eosinophils # (A) 0.1 k/uL (0-0.7); Eosinophils % (A) 1 %; HCT 45.7 % (34.0-46.0); HGB 16.2 gm/dL (11.4-16.0); Lymphocytes # (A) 2.6 k/uL (1.0-4.8); Lymphocytes % (A) 34 %; MCH 31.9 pg (25.0-35.0); MCHC 35.6 g/dL (31.0-37.0); MCV 89.8 fL (80.0-100.0); Mean Platelet Volume 7.2; Monocytes # (A) 0.3 k/uL (0-1.0); Monocytes % (A) 4 %; Neutrophils # (A) 4.5 k/uL (1.3-7.7); Neutrophils % (A) 58 %; Platelet Count 268 k/uL (150-450); RBC 5.09 m/uL (3.80-5.40); RDW 12.3 % (11.5-15.5); WBC 7.7 k/uL (3.8-10.6)
[2020-10-23 19:32] LABS: Rheumatoid Factor, Qnt 5 IU/mL (0-15)
[2020-10-24 11:56] LABS: Angiotensin-1 Converting Enz. 41 U/L (8-52)
== END | disposition home or self-care (01) ==
LOC: RADXRMAIN 13:00
PROVIDERS: ATTEND Ophthalmology
DX: H20.9 Unspecified iridocyclitis (principal)
CPT/HCPCS: 71046; 72202; 82164; 83090; 85025; 85549; 86038; 86039; 86431; 86618; 86780

== ENCOUNTER → 2020-11-02 | Outpatient (CLI) | payer OTHER ==
[2020-11-03 13:07] LABS: HLA B27 NEGATIVE
[2020-11-04 07:10] LABS: Toxoplasma Antibody (IgG) <3.0 IU/mL (<7.2); Toxoplasma Antibody (IgM) <3.0 AU/mL (<8.0)
== END | disposition home or self-care (01) ==
LOC: LABWHC1 10:31
PROVIDERS: ATTEND Ophthalmology
DX: H43.89 Other disorders of vitreous body (principal)
CPT/HCPCS: 36415; 86777; 86778; 86812

== ENCOUNTER 2021-04-07 23:27 | Emergency (ER) | payer OTHER ==
[2021-04-07 23:41] VITALS: PULSE 74; RESP 18; TEMP 97.9
[2021-04-08] MEDS ORDERED: MAG HYDROX/AL HYDROX/SIMETH 30 ML, HYOSCYAMINE ELIXIR 10 ML, LIDOCAINE VISCOUS 2% 10 ML PO STA ×3 (00:39)
[2021-04-08 01:28] LABS: Basophils # (A) 0.1 k/uL (0-0.2); Basophils % (A) 1 %; Eosinophils # (A) 0.1 k/uL (0-0.7); Eosinophils % (A) 1 %; HCT 42.3 % (34.0-46.0); HGB 14.2 gm/dL (11.4-16.0); Lymphocytes # (A) 1.5 k/uL (1.0-4.8); Lymphocytes % (A) 20 %; MCH 30.1 pg (25.0-35.0); MCHC 33.6 g/dL (31.0-37.0); MCV 89.7 fL (80.0-100.0); Mean Platelet Volume 7.6; Monocytes # (A) 0.3 k/uL (0-1.0); Monocytes % (A) 4 %; Neutrophils # (A) 5.5 k/uL (1.3-7.7); Neutrophils % (A) 74 %; Platelet Count 148 k/uL (150-450); RBC 4.72 m/uL (3.80-5.40); RDW 11.8 % (11.5-15.5); WBC 7.4 k/uL (3.8-10.6)
[2021-04-08 01:41] LABS: ALT 76 U/L (4-34); AST 313 U/L (14-36); African American GFR (CKD) >90 (>60 ml/min/1.73 sqM); Albumin 3.9 g/dL (3.5-5.0); Alkaline Phosphatase 119 U/L (38-126); Amylase 59 U/L (30-110); Anion Gap 4 mmol/L; Blood Urea Nitrogen 13 mg/dL (7-17); Calcium 9.6 mg/dL (8.4-10.2); Carbon Dioxide 30 mmol/L (22-30); Chloride 104 mmol/L (98-107); Glucose 106 mg/dL (74-99); Lipase 143 U/L (23-300); Non-African American GFR(CKD) >90 (>60 ml/min/1.73 sqM); Potassium 4.1 mmol/L (3.5-5.1); Sodium 138 mmol/L (137-145); Total Bilirubin 0.4 mg/dL (0.2-1.3); Total Protein 6.5 g/dL (6.3-8.2)
[2021-04-08 02:02] LABS: Appearance,Urine Cloudy (Clear); Bacteria,Urine Rare /hpf; Bilirubin,Urine Negative (Negative); Blood,Urine Moderate (Negative); Color,Urine Yellow; Glucose,Urine (UA) Negative (Negative); Hyaline Casts,Urine 3 /lpf (0-2); Ketones,Urine Negative (Negative); Leukocyte Esterase,Urine Negative (Negative); Mucus,Urine Rare /hpf; Nitrite,Urine Negative (Negative); Protein,Urine 1+ (Negative); RBC,Urine 5 /hpf (0-5); Squamous Epithelial Cell,Urine 11 /hpf (0-4); WBC,Urine 8 /hpf (0-5)
--- NOTE | 2021-04-08 02:17 | ED ---
General Adult HPI - General Chief complaint: Abdominal Pain Stated complaint: Abdominal pain Time Seen by Provider: 04/08/21 00:08 Source: patient Mode of arrival: ambulatory - History of Present Illness Initial comments: This patient is 30-year-old woman who presents to be evaluated for epigastric and substernal pain that started proximally 40 minutes before she came here. Th e patient states that she had been playing cards with family members. She noticed what felt like indigestion but then he became very intense. Patient did not note any relieving or worsening factors. She did have a little bit of nausea no vomiting. She had one episode of diarrhea earlier no blood or dark tarry stools. The patient states she has had some improvement from when the pain had started. Onset/Timin -: minutes(s) Location: chest, abdomen Quality: aching Consistency: now resolved (Partially) Improves with: none Worsens with: none Treatments Prior to Arrival: none - Related Data Home Medications Medication Instructions Recorded Confirmed Ibuprofen [Motrin] 800 mg PO Q6HR PRN 10/12/15 01/06/18 Phenylephrine/Dm/Acetaminop/GG 1 tab PO BID 01/06/18 01/06/18 [Tylenol Cold-Flu Severe Caplet] Previous Rx's Medication Instructions Recorded Cyclobenzaprine [Flexeril] 10 mg PO TID #20 tab 01/06/18 predniSONE 50 mg PO DAILY #5 tablet 09/27/18 Albuterol Inhaler (Mhu) [Ventolin 1 - 2 puff INHALATION RT-Q6H PRN 12/31/18 Hfa Inhaler (Mhu)] #1 inhaler predniSONE 50 mg PO DAILY #5 tablet 12/31/18 Lidocaine Viscous [Xylocaine 5 ml PO Q3HR PRN #100 ml 04/08/21 Viscous 2%] Allergies Allergy/AdvReac Type Severity Reaction Status Date / Time Iodinated Contrast Media Allergy Rash/Hives Verified 04/07/21 23:41 [Iodinated Contrast Media - IV Dye] pomegranate Allergy Itching Verified 04/07/21 23:41 Review of Systems ROS Statement: Those systems with pertinent positive or pertinent negative responses have been documented in the HPI. ROS Other: All systems not noted in ROS Statement are negative. Constitutional: Denies: fever, chills ENT: Denies: throat pain Respiratory: Denies: cough, dyspnea Cardiovascular: Reports: as per HPI, chest pain. Denies: palpitations, orthop kasi, edema, syncope Gastrointestinal: Reports: as per HPI, abdominal pain, nausea, diarrhea. Denies: vomiting, constipation, melena, hematochezia Genitourinary: Denies: dysuria, frequency, hematuria Musculoskeletal: Denies: back pain Skin: Denies: rash Neurological: Denies: headache, weakness, numbness Past Medical History Past Medical History: Pneumonia, Pulmonary Embolus (PE) Additional Past Medical History / Comment(s): COLLAPSED LUNG meningitis History of Any Multi-Drug Resistant Organisms: None Reported Past Surgical History: No Surgical Hx Reported Additional Past Surgical History / Comment(s): CHEST TUBE Past Psychological History: No Psychological Hx Reported Smoking Status: Current every day smoker Past Alcohol Use History: Occasional Past Drug Use History: Marijuana General Exam General appearance: alert, in no apparent distress Head exam: Present: atraumatic, normocephalic Eye exam: Present: normal appearance. Absent: scleral icterus, conjunctival injection ENT exam: Present: normal oropharynx Neck exam: Present: normal inspection Respiratory exam: Present: normal lung sounds bilaterally. Absent: respiratory distress, wheezes, rales, rhonchi, stridor, chest wall tenderness Cardiovascular Exam: Present: regular rate, normal rhythm, normal heart sounds. Absent: systolic murmur, diastolic murmur, rubs, gallop GI/Abdominal exam: Present: soft, tenderness (Mild epigastric tenderness). Absent: distended, guarding, rebound, rigid, mass, pulsatile mass, hernia Extremities exam: Present: normal inspection, normal capillary refill. Absent: pedal edema, calf tenderness Back exam: Present: normal inspection. Absent: CVA tenderness (R), CVA tenderness (L) Neurological exam: Present: alert Skin exam: Present: warm, dry, intact, normal color. Absent: rash Course Vital Signs 04/07/21 04/08/21 23:37 02:48 Temperature 97.9 F Pulse Rate 74 74 Respiratory 18 18 Rate Blood Pressure 110/64 115/64 O2 Sat by Pulse 98 96 Oximetry Medical Decision Making - Medical Decision Making Patient is 30-year-old woman with epigastric and substernal chest pain, relieved by GI cocktail. The patient labs do reveal elevated AST ALT. I discussed with patient who states she does have history of fatty liver. Discussed need to follow-up to have repeat testing. She will discuss with her physician. Patient may also require GI follow-up if symptoms recur or any new symptoms develop. - Lab Data Result diagrams: 04/08/21 01:16 04/08/21 01:16 Lab Results 04/08/21 04/08/21 04/08/21 Range/Units 01:16 01:16 01:17 WBC 7.4 (3.8-10.6) k/uL RBC 4.72 (3.80-5.40) m/uL Hgb 14.2 (11.4-16.0) gm/dL Hct 42.3 (34.0-46.0) % MCV 89.7 (80.0-100.0) fL MCH 30.1 (25.0-35.0) pg MCHC 33.6 (31.0-37.0) g/dL RDW 11.8 (11.5-15.5) % Plt Count 148 L (150-450) k/uL MPV 7.6 Neutrophils % 74 % Lymphocytes % 20 % Monocytes % 4 % Eosinophils % 1 % Basophils % 1 % Neutrophils # 5.5 (1.3-7.7) k/uL Lymphocytes # 1.5 (1.0-4.8) k/uL Monocytes # 0.3 (0-1.0) k/uL Eosinophils # 0.1 (0-0.7) k/uL Basophils # 0.1 (0-0.2) k/uL Sodium 138 (137-145) mmol/L Potassium 4.1 (3.5-5.1) mmol/L Chloride 104 (98-107) mmol/L Carbon Dioxide 30 (22-30) mmol/L Anion Gap 4 mmol/L BUN 13 (7-17) mg/dL Creatinine 0.77 (0.52-1.04) mg/dL Est GFR (CKD-EPI)AfAm >90 (>60 ml/min/1.73 sqM) Est GFR (CKD-EPI)NonAf >90 (>60 ml/min/1.73 sqM) Glucose 106 H (74-99) mg/dL Calcium 9.6 (8.4-10.2) mg/dL Total Bilirubin 0.4 (0.2-1.3) mg/dL AST 313 H (14-36) U/L ALT 76 H (4-34) U/L Alkaline Phosphatase 119 (38-126) U/L Total Protein 6.5 (6.3-8.2) g/dL Albumin 3.9 (3.5-5.0) g/dL Amylase 59 (30-110) U/L Lipase 143 (23-300) U/L Urine Color Yellow Urine Appearance Cloudy H (Clear) Urine pH 6.0 (5.0-8.0) Ur Specific [place] 1.030 (1.001-1.035) Urine Protein 1+ H (Negative) Urine Glucose (UA) Negative (Negative) Urine Ketones Negative (Negative) Urine Blood Moderate H (Negative) Urine Nitrite Negative (Negative) Urine Bilirubin Negative (Negative) Urine Urobilinogen 3.0 (<2.0) mg/dL Ur Leukocyte Esterase Negative (Negative) Urine RBC 5 (0-5) /hpf Urine WBC 8 H (0-5) /hpf Ur Squamous Epith Cells 11 H (0-4) /hpf Urine Bacteria Rare H (None) /hpf Hyaline Casts 3 H (0-2) /lpf Urine Mucus Rare H (None) /hpf Urine HCG, Qual (Not Detectd) 04/08/21 Range/Units 01:17 WBC (3.8-10.6) k/uL RBC (3.80-5.40) m/uL Hgb (11.4-16.0) gm/dL Hct (34.0-46.0) % MCV (80.0-100.0) fL MCH (25.0-35.0) pg MCHC (31.0-37.0) g/dL RDW (11.5-15.5) % Plt Count (150-450) k/uL MPV Neutrophils % % Lymphocytes % % Monocytes % % Eosinophils % % Basophils % % Neutrophils # (1.3-7.7) k/uL Lymphocytes # (1.0-4.8) k/uL Monocytes # (0-1.0) k/uL Eosinophils # (0-0.7) k/uL Basophils # (0-0.2) k/uL Sodium (137-145) mmol/L Potassium (3.5-5.1) mmol/L Chloride (98-107) mmol/L Carbon Dioxide (22-30) mmol/L Anion Gap mmol/L BUN (7-17) mg/dL Creatinine (0.52-1.04) mg/dL Est GFR (CKD-EPI)AfAm (>60 ml/min/1.73 sqM) Est GFR (CKD-EPI)NonAf (>60 ml/min/1.73 sqM) Glucose (74-99) mg/dL Calcium (8.4-10.2) mg/dL Total Bilirubin (0.2-1.3) mg/dL AST (14-36) U/L ALT (4-34) U/L Alkaline Phosphatase (38-126) U/L Total Protein (6.3-8.2) g/dL Albumin (3.5-5.0) g/dL Amylase (30-110) U/L Lipase (23-300) U/L Urine Color Urine Appearance (Clear) Urine pH (5.0-8.0) Ur Specific [place] (1.001-1.035) Urine Protein (Negative) Urine Glucose (UA) (Negative) Urine Ketones (Negative) Urine Blood (Negative) Urine Nitrite (Negative) Urine Bilirubin (Negative) Urine Urobilinogen (<2.0) mg/dL Ur Leukocyte Esterase (Negative) Urine RBC (0-5) /hpf Urine WBC (0-5) /hpf Ur Squamous Epith Cells (0-4) /hpf Urine Bacteria (None) /hpf Hyaline Casts (0-2) /lpf Urine Mucus (None) /hpf Urine HCG, Qual Not Detected (Not Detectd) Disposition Clinical Impression: Esophagitis Disposition: HOME SELF-CARE Condition: Good Instructions (If sedation given, give patient instructions): Esophagitis (ED) Prescriptions: Lidocaine Viscous [Xylocaine Viscous 2%] 5 ml PO Q3HR PRN #100 ml PRN Reason: Sore Throat Is patient prescribed a controlled substance at d/c from ED?: No Referrals: Yordan Cazares MD [Primary Care Provider] - 1-2 days Emiliana Granados MD [STAFF PHYSICIAN] - 1-2 days
[2021-04-08 02:50] VITALS: BP 115/64
== END 2021-04-08 02:50 | disposition home or self-care (01) ==
LOC: EC 23:27
DX: K20.90 Esophagitis, unspecified without bleeding (principal); F17.200 Nicotine dependence, unspecified, uncomplicated; Z91.041 Radiographic dye allergy status; Z88.8 Allergy status to other drugs, medicaments and biological substances
CPT/HCPCS: 36415; 80053; 81001; 81025; 82150; 83690; 85025; 99284

== ENCOUNTER → 2024-03-18 | Outpatient (CLI) | payer OTHER ==
[2024-03-19 06:07] LABS: Toxoplasma Antibody (IgG) <3.0 IU/mL (<7.2)
[2024-03-19 13:52] LABS: C-ANCA <1:20 Titer (<1:20)
[2024-03-19 14:44] LABS: HLA B27 NEGATIVE
[2024-03-19 19:12] LABS: ANA Pattern Speckled
== END | disposition home or self-care (01) ==
LOC: LABWHC1 14:41
PROVIDERS: ATTEND Optometrist
DX: H20.021 Recurrent acute iridocyclitis, right eye (principal)
CPT/HCPCS: 36415; 85549; 85652; 86038; 86039; 86140; 86255; 86618; 86777; 86812